=== PATIENT | female | born 1940 | race Caucasian/White ===

== ENCOUNTER 2023-06-29 16:07 | Emergency (ER) | payer MEDICARE, BC ==
[~2023-06-29] VITALS: Ht 149.9 cm; Wt 56.8 kg
[2023-06-29 16:07] VITALS: BP 94/54; PULSE 85; RESP 18; O2SAT 94
== END 2023-06-29 19:30 | disposition left against medical advice (07) ==
LOC: ER 16:07
DX: J11.1 Influenza due to unidentified influenza virus with other respiratory manifestations (principal); Z53.21 Procedure and treatment not carried out due to patient leaving prior to being seen by health care provider